=== PATIENT | male | born 1980 | race Caucasian/White ===

== ENCOUNTER 2016-05-25 09:50 | Emergency (ER) | payer OTHER ==
[~2016-05-25] VITALS: Ht 172.7 cm; Wt 80.0 kg
[~2016-05-25 09:50] MED LIST: IBUP200C11
[2016-05-25 10:01] VITALS: Ht 172.7 cm; Wt 80.0 kg
--- NOTE | 2016-05-25 11:40 | RADRPT ---
PROCEDURE: XR Right Ribs Series CLINICAL INDICATION: Trauma, anterior right rib pain TECHNIQUE: Several oblique views of the right ribs were obtained. The images were reviewed on a [employer] workstation. COMPARISON: None. FINDINGS: Osseous structures: The right ribs appear intact with no fracture or destructive process evident. Lung handy: The lung handy are clear. Pleural spaces: No pneumothorax or pleural fluid accumulation is evident. Soft Tissues: Appear unremarkable. IMPRESSION: Unremarkable right rib series. Physician Shikha Date Time Electronically viewed and signed by Physician Shikha on 05/25/2016 11:40 /
[2016-05-25] MEDS ORDERED: IBUP-1542 PO (11:47)
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
== END 2016-05-25 12:20 | disposition home or self-care (01) ==
LOC: FTE 09:50
DX: S20.211A Contusion of right front wall of thorax, initial encounter (principal); J45.909 Unspecified asthma, uncomplicated; V28.9XXA Unspecified motorcycle rider injured in noncollision transport accident in traffic accident, initial encounter
CPT/HCPCS: 71100; Z7502

== ENCOUNTER 2016-11-09 14:40 | Emergency (ER) | payer SELFPAY ==
[~2016-11-09] VITALS: Ht 167.6 cm; Wt 79.0 kg
[~2016-11-09 14:40] MED LIST changes: +IBUP-1542 PO
[2016-11-09 14:43] VITALS: Ht 167.6 cm; Wt 79.0 kg
[2016-11-09] MEDS ORDERED: CLIN-73 PO (15:09)
--- NOTE | 2016-11-09 15:15 | ERD ---
ER Documentation Chief Complaint Date/Time DATE: 11/09/16 TIME: 15:12 Chief Complaint WOKE UP WITH RT KNEE REDNESS /PAIN YESTERDAY , NO TRAUMA HPI Patient is an otherwise healthy 36-year-old male who presents with redness on the anterior surface of his right knee that began yesterday. Denies any trauma. Does admit to fever. Denies any numbness or tingling. Denies any loss of range of motion. He is ambulatory. Pain is mild to moderate throbbing nonradiating in severity. ROS All systems reviewed and are negative except as per history of present illness. Medications Home Meds Active Scripts Clindamycin Hcl* (Clindamycin Hcl*) 300 Mg Capsule, 300 MG PO TID for 10 Days, CAP Prov:CHARLENE WILSON PA-C 11/09/16 Ibuprofen* (Motrin*) 600 Mg Tab, 600 MG PO Q6, #30 TAB Prov:CHARLENE WILSON PA-C 05/25/16 Reported Medications Ibuprofen* (Advil*) 200 Mg Capsule 08/12/12 Allergies Allergies: Coded Allergies: Penicillins (Verified Allergy, Intermediate, 11/09/16) PMhx/Soc Medical and Surgical Hx: pt denies Surgical Hx History of Surgery: No Anesthesia Reaction: No Hx Neurological Disorder: No Hx Respiratory Disorders: Yes (asthma as a kid) Hx Cardiac Disorders: No Hx Psychiatric Problems: No Hx Miscellaneous Medical Probl: No Hx Alcohol Use: Yes Hx Substance Use: No Hx Tobacco Use: No Smoking Status: Never smoker FmHx Family History: No diabetes Physical Exam Vitals Vital Signs Date Time Temp Pulse Resp B/P Pulse Ox O2 Delivery O2 Flow Rate FiO2 11/09/16 14:43 99.9 78 18 134/85 98 Physical Exam General: well developed, well nourished, alert, nontoxic, no distress Head: normocephalic, atraumatic Neck: Supple, nontender, no lymphadenopathy, no midline tenderness Respiratory: Clear to auscaultation bilaterally, speaks in full sentences, no use of accesory muscles or labored breathing, no rales, ronchi, or wheezing Cardiovascular: RRR, No murmurs Extremities: Mild erythema over the anterior surface of the right knee, patient has full range of motion in the knee, no bony abnormalities, warm to palpation, no edema, no induration or abscess formation Procedures/MDM 36-year-old male has cellulitis in the right knee. I doubt septic joint as he is able to range his knee fully without any pain or limitations. He has a low- grade temperature 99.9 I recommend he take Tylenol at home. He was given a prescription with clindamycin. I counseled him on signs and symptoms to be concerned about and he will return for any new or worsening symptoms. I reviewed the case with Dr. Hoang and he agrees with the plan. Recommended this patient follow up with her primary care doctor within 48 hours or return to the emergency room for any worsening of symptoms. However this time I do believe there is suitable for outpatient management. I answered all their questions and they agreed with the plan and were discharged home. Departure Diagnosis: Primary Impression: Cellulitis Condition: Stable Patient Instructions: Cellulitis Additional Instructions: Call your primary care doctor TOMORROW for an appointment during the next 1-2 days.See the doctor sooner or return here if your condition worsens before your appointment time. CHARLENE WILSON PA-C Nov 09, 2016 15:15
== END 2016-11-09 15:21 | disposition home or self-care (01) ==
LOC: FTE 14:40
DX: L03.115 Cellulitis of right lower limb (principal)
CPT/HCPCS: 99283

== ENCOUNTER 2017-10-24 21:55 | Emergency (ER) | END 2017-10-25 00:50 | disposition home or self-care (01) ==